=== PATIENT | female | born 1970 | race Caucasian/White ===

== ENCOUNTER 2017-06-19 15:51 | Outpatient (CLI) | payer OTHER ==
--- NOTE | 2017-06-19 16:08 | RAD ---
RADIOGRAPH CHEST 2 VIEWS: HISTORY: A 47-year-old female with cough. FINDINGS: There is no air space density, pulmonary edema, pleural effusion, pneumothorax, or cardiomegaly. IMPRESSION: No acute cardiopulmonary findings. jn [] POS: ROB
== END 2017-06-19 15:52 | disposition home or self-care (01) ==
LOC: RAD-FRANK 15:51
PROVIDERS: ATTEND Nurse Practitioner Family
DX: J40 Bronchitis, not specified as acute or chronic (principal); R05 Cough; J11.1 Influenza due to unidentified influenza virus with other respiratory manifestations; R06.2 Wheezing
CPT/HCPCS: 71046